=== PATIENT | male | born 1960 | race Caucasian/White ===

== ENCOUNTER 2021-01-04 12:24 | Emergency (ER) | payer BC ==
[~2021-01-04] VITALS: Ht 188 cm; Wt 100.0 kg
[2021-01-04] MEDS ORDERED: AMPICILLIN/SULBACTAM 3 GM in IV NORMAL SALINE 100ML 100 ML IV ONE (12:45)
[2021-01-04] MEDS ORDERED: MORPHINE SULFATE 4 MG/ML DISP.SYRIN. IV ONE ×3 (12:45→14:45)
[2021-01-04] MEDS ORDERED: DIPH,PERTUSS(ACELL),TET VAC/PF 0.5 ML SYRINGE. VAX IM ONE ×2 (13:00→13:03)
[2021-01-04] MEDS ORDERED: ONDANSETRON PF 4 MG/2 ML VIAL. IVP ONE (13:00)
[2021-01-04 13:01] LABS: BASO # 0.1 x10^3/uL (0.0-0.2); BASO % 1 % (0-3); EOS # 0.4 x10^3/uL (0.0-0.7); EOS % 5 % (0-3); HEMATOCRIT 41.9 % (39.0-53.0); HEMOGLOBIN 14.3 g/dL (13.0-17.5); LYMPH # 2.7 x10^3/uL (1.0-4.8); LYMPH % 35 % (24-48); MEAN CORPUSCULAR HEMOGLOBIN 32 pg (25-35); MEAN CORPUSCULAR HGB CONC 34 g/dL (31-37); MEAN CORPUSCULAR VOLUME 93 fL (79-100); MONO # 0.7 x10^3/uL (0.0-1.1); MONO % 10 % (0-9); NEUT # 3.9 x10^3uL (1.8-7.7); NEUT % 50 % (31-73); PLATELET COUNT 276 x10^3/uL (140-400); RED BLOOD COUNT 4.51 x10^6/uL (4.30-5.70); RED CELL DISTRIBUTION WIDTH 13.3 % (11.5-14.5); WHITE BLOOD COUNT 7.8 x10^3/uL (4.0-11.0)
[2021-01-04] MEDS ORDERED: ONDANSETRON PF 4 MG/2 ML VIAL. ONE (13:03)
[2021-01-04 13:06] LABS: CALCIUM 8.9 mg/dL (8.5-10.1); CREATININE 1.1 mg/dL (0.7-1.3); GFR 68.5; POTASSIUM 4.2 mmol/L (3.5-5.1)
[2021-01-04] MEDS ORDERED: AMOX1TAB61 PO (13:30)
--- NOTE | 2021-01-04 13:31 | PHYS DOC ---
Past History Past Surgical History: Other Additional Past Surgical Histo: hernia Alcohol Use: Heavy Adult General Chief Complaint Chief Complaint: LACERATION/AVULSION HPI HPI Patient is a 60-year-old male who presents with a chief complaint of foreign body in left lower extremity. States he and his son were well in the yard and they were put in the riding lawnmower back on the trailer while the blade was on it hit a piece of metal as was going up and shattered. States he thinks he has 3 shards that were stuck in his leg and he pulled one out. Denies any other injuries. States he is not up-to-date on his tetanus vaccinations. Denies any use of blood thinners. Review of Systems Review of Systems Review of systems otherwise unremarkable except noted in HPI Current Medications Current Medications Current Medications Medications (Trade) Dose Ordered Sig/Darlyn Start Time Stop Time Status Last Admin Dose Admin Ampicillin Sodium/ Sulbactam Sodium 3 gm/Sodium Chloride 100 ml @ 200 mls/hr 1X ONCE 01/04/21 12:45 01/04/21 13:14 DC 01/04/21 13:21 200 MLS/HR Diphtheria/ Pertussis/Tetanus Vacc (ADACEL TDap SYRINGE) 0.5 ml STK-MED ONCE 01/04/21 13:03 01/04/21 13:04 DC Morphine Sulfate (Morphine 4mg Syringe) 4 mg 1X ONCE 01/04/21 12:45 01/04/21 12:55 DC 01/04/21 13:10 4 MG Ondansetron HCl (Zofran) 4 mg STK-MED ONCE 01/04/21 13:03 01/04/21 13:03 DC Allergies Allergies Allergies Coded Allergies Type Severity Reaction Last Updated Verified No Known Drug Allergies 01/04/21 No Physical Exam Physical Exam Constitutional: Well developed, well nourished, no acute distress, non-toxic appearance. [] HENT: Normocephalic, atraumatic, bilateral external ears normal, oropharynx moist, no oral exudates, nose normal. [] Eyes: conjunctiva normal, no discharge. [] Neck: Normal range of motion, no tenderness, supple, no stridor. [] Cardiovascular:Heart rate regular rhythm, no murmur [] Lungs & Thorax: Bilateral breath sounds clear to auscultation [] Abdomen: soft, no tenderness, no masses, no pulsatile masses. [] Skin: Warm, dry, no erythema, no rash. [] Back: No tenderness, Extremities: Neurologic: Alert and oriented X 3, no focal deficits noted. [] Psychologic: Affect normal, judgement normal, mood normal. [] Current Patient Data Vital Signs Vital Signs Date Time Temp Pulse Resp B/P (MAP) Pulse Ox O2 Delivery O2 Flow Rate FiO2 01/04/21 13:10 16 100 01/04/21 12:35 98.1 80 118/68 Lab Results Laboratory Tests Test 01/04/21 12:45 White Blood Count 7.8 x10^3/uL (4.0-11.0) Red Blood Count 4.51 x10^6/uL (4.30-5.70) Hemoglobin 14.3 g/dL (13.0-17.5) Hematocrit 41.9 % (39.0-53.0) Mean Corpuscular Volume 93 fL (79-100) Mean Corpuscular Hemoglobin 32 pg (25-35) Mean Corpuscular Hemoglobin Concent 34 g/dL (31-37) Red Cell Distribution Width 13.3 % (11.5-14.5) Platelet Count 276 x10^3/uL (140-400) Neutrophils (%) (Auto) 50 % (31-73) Lymphocytes (%) (Auto) 35 % (24-48) Monocytes (%) (Auto) 10 % (0-9) H Eosinophils (%) (Auto) 5 % (0-3) H Basophils (%) (Auto) 1 % (0-3) Neutrophils # (Auto) 3.9 x10^3uL (1.8-7.7) Lymphocytes # (Auto) 2.7 x10^3/uL (1.0-4.8) Monocytes # (Auto) 0.7 x10^3/uL (0.0-1.1) Eosinophils # (Auto) 0.4 x10^3/uL (0.0-0.7) Basophils # (Auto) 0.1 x10^3/uL (0.0-0.2) Sodium Level 143 mmol/L (136-145) Potassium Level 4.2 mmol/L (3.5-5.1) Chloride Level 105 mmol/L (98-107) Carbon Dioxide Level 28 mmol/L (21-32) Anion Gap 10 (6-14) Blood Urea Nitrogen 15 mg/dL (8-26) Creatinine 1.1 mg/dL (0.7-1.3) Estimated GFR (Cockcroft-Gault) 68.5 Glucose Level 93 mg/dL (70-99) Calcium Level 8.9 mg/dL (8.5-10.1) EKG EKG [] Radiology/Procedures Radiology/Procedures [] CT arteriogram of the left lower extremity. HISTORY: Lawnmower blade shattered, penetrating injury left calf CT arteriogram was done using 100 and now Omnipaque 350 contrast. Images started at the level of the distal femur. Popliteal artery is normal. All 3 vessels are patent at the trifurcation. Anterior tibial artery is patent to the foot. Dorsalis pedis is patent in the foot. Posterior tibial and peroneal vessels are patent. There are foreign bodies in the lateral and posterior lateral calf which are not close to the major vessels. Tibia and fibula appear intact without fracture. Extravasated contrast is not identified. IMPRESSION: 1. Metallic foreign bodies lateral calf. 2. No major vessel injury noted. Electronically signed by: Austin Yip MD (01/04/2021 1:51 PM) [facility] Cleaned all wounds extensively with sterile water and Betadine. L ET placed for topical anesthesia. Anesthesia achieved. First laceration, 2.5 cm closed with 4 sutures of 4-0 Ethilon. Patient tolerated well. Second laceration, 1 cm 2 sutures of 4-0 Ethilon 30 laceration, 1 cm 2 sutures of 4-0 Ethilon Heart Score C/O Chest Pain: No Risk Factors: Risk Factors: DM, Current or recent (<one month) smoker, HTN, HLP, family history of CAD, obesity. Risk Scores: Risk Factors: DM, Current or recent (<one month) smoker, HTN, HLP, family histo ry of CAD, obesity. Course & Med Decision Making Course & Med Decision Making Patient is a 60-year-old male who presents to the emergency department with shortness of a broken lawnmower blade in his lower left extremity Vital signs not concerning. Physical exam noted above. Patient placed on the monitor with IV access established. Tetanus updated. Given morphine for pain. Given Zofran for nausea. Imaging with metallic foreign bodies in the lateral calf with no major vessel injury noted. Metallic bodies removed. Wounds cleaned extensively sterile water then Betadine. Lacerations closed with suture. Leg cleaned and bandaged. Removed 3 pieces of metal from lower extremity. POC ultrasound of all wounds was conducted and no further foreign bodies observed. Continued on antibiotics. Discussed all findings with family. Gave strict return precautions to the emergency department advised to call primary care physician first thing in the morning to update on ED visit and set up a follow- up visit. Family grateful, verbalized understanding and agreed with plan of discharge. Dragon Disclaimer Dragon Disclaimer This electronic medical record was generated, in whole or in part, using a voice recognition dictation system. Departure Departure: Impression: Primary Impression: Lacerations of multiple sites of left leg Additional Impression: Foreign body (FB) in soft tissue Disposition: 01 HOME / SELF CARE / HOMELESS Condition: GOOD Referrals: MIC PETERSON DO (PCP) Patient Instructions: Foreign Body, Laceration Care, Adult, Sutured Wound Care Additional Instructions: Thank you for coming into the emergency department tonight and allowing us to take care of you. Please read all of the attached information above to go back over things we discussed. Please take all of your antibiotics as prescribed. Please keep these areas clean, dry and bandaged. You can use Tylenol and i buprofen as well as ice and/or Benadryl at home as needed for pain control. Your tetanus was updated while you are here in the emergency department. Please follow-up with your primary care physician first thing in the morning to update on your ED visit and set up a follow-up visit for a wound check and suture removal in 7 to 10 days, as well as a follow-up visit later this week for reimaging. Please come back to the emergency department immediately with new or concerning symptoms as we discussed. Scripts Hydrocodone Bit/Acetaminophen (HYDROCODONE-APAP 5-325 ) 1 Each Tablet 1 TAB PO TID PRN for leg pain for 3 Days, #9 TAB 0 Refills Prov: AGGIE HOLLIS MD 01/04/21 Amoxicillin/Potassium Clav (AUGMENTIN 875-125 TABLET) 1 Each Tablet 1 TAB PO BID for lacerations for 10 Days, #20 TAB 0 Refills Prov: AGGIE HOLLIS MD 01/04/21 Problem Qualifiers AGGIE HOLLIS MD Jan 04, 2021 13:30
--- NOTE | 2021-01-04 13:54 | RAD ---
CT arteriogram of the left lower extremity. HISTORY: Lawnmower blade shattered, penetrating injury left calf CT arteriogram was done using 100 and now Omnipaque 350 contrast. Images started at the level of the distal femur. Popliteal artery is normal. All 3 vessels are patent at the trifurcation. Anterior tibi al artery is patent to the foot. Dorsalis pedis is patent in the foot. Posterior tibial and peroneal vessels are patent. There are foreign bodies in the lateral and posterior lateral calf which are not close to the major vessels. Tibia and fibula appear intact without fracture. Extravasated contrast is not identified. IMPRESSION: 1. Metallic foreign bodies lateral calf. 2. No major vessel injury noted. Electronically signed by: Austin Yip MD (01/04/2021 1:51 PM) [facility]
[2021-01-04] MEDS ORDERED: LIDOCAINE/EPI/TETRACAINE TOPICAL GEL 3 ML. TP ONE (14:45)
--- NOTE | 2021-01-04 16:37 | RAD ---
XR LT TIBIA + FIBULA Clinical indications: Reason: Post removal of shrapnel COMPARISON: CT study performed earlier. Findings: No acute fracture or dislocation or osteolytic process is evident. There are 2 places of m etallic foreign body shrapnel within the lateral soft tissues of the distal left lower leg. More prox imal superior piece measures 10 mm in greatest dimension. The more distal disease measures 7 mm in gr eatest dimension. Between these 2 pieces, there are 2 punctate metallic foreign bodies present within the lateral soft tissues. And to last lateral views, a metallic curvilinear skin marker has been chayito catracho. The largest piece of shrapnel seen within the lateral mid calf seen on the CT study has been rem pranav. There was another prominent metallic piece of shrapnel located between the above 2 pieces of sh rapnel discussed earlier which has been removed as well. IMPRESSION: No acute osseous abnormality is evident. There are 2 remaining prominent pieces of metall ic shrapnel. Electronically signed by: Kosta Fenton MD (01/04/2021 4:34 PM) [id number]
[2021-01-04] MEDS ORDERED: HYDR-2155 PO (17:21)
[2021-01-04 17:30] VITALS: BP 136/47
[2021-01-04] MEDS ORDERED: oxyCODONE/APAP 5/325 1 TAB TABLET PO ONE (17:30)
== END 2021-01-04 17:25 | disposition home or self-care (01) ==
LOC: ER 12:24
DX: S81.822A Laceration with foreign body, left lower leg, initial encounter (principal); F10.20 Alcohol dependence, uncomplicated; Y90.9 Presence of alcohol in blood, level not specified; W31.89XA Contact with other specified machinery, initial encounter; Y93.89 Activity, other specified; Y92.096 Garden or yard of other non-institutional residence as the place of occurrence of the external cause; Y99.8 Other external cause status
CPT/HCPCS: 12032; 36415; 73590; 73706; 80048; 85025; 90471; 90715; 96365; 96375; 96376; 99285; J0295; J2270; J2405